=== PATIENT | female | born 1930 | race Caucasian/White ===

== ENCOUNTER 2018-06-20 14:24 | Day surgery (SDC) | payer MEDICARE, BC ==
[2018-06-17 12:51] LABS: BASOPHILS % (AUTO) 0.3 % (0-1); EOSINOPHILS # (AUTO) 0.2 X10'3 (0-0.9); EOSINOPHILS % (AUTO) 2.2 % (0-6); HEMATOCRIT 35.9 % (35.0-45.0); HEMOGLOBIN 11.8 g/dl (12.0-16.0); LYMPHOCYTES # (AUTO) 1.3 X10'3 (1.1-4.8); LYMPHOCYTES % (AUTO) 14.8 % (21-51); MEAN CORPUSCULAR HEMOGLOBIN 28.3 PG (27.0-31.0); MEAN CORPUSCULAR HGB CONC 32.9 g/dL (33.0-36.5); MEAN CORPUSCULAR VOLUME 86.1 FL (78-98); MONOCYTES # (AUTO) 0.7 X10'3 (0-0.9); MONOCYTES % (AUTO) 7.9 % (2-12); NEUTROPHILS # (AUTO) 6.5 X10'3 (1.8-7.7); NEUTROPHILS % (AUTO) 74.8 % (42-75); PLATELET COUNT 211 X10'3 (140-440); RED BLOOD COUNT 4.17 X10'6 (4.20-5.60); RED CELL DISTRIBUTION WIDTH 15.6 % (11.5-14.5); WHITE BLOOD COUNT 8.7 X10'3 (4.5-11.0)
[2018-06-17 12:58] LABS: ALBUMIN 3.1 G/DL (3.4-5.0); ANION GAP 8 (8-16); BLOOD UREA NITROGEN 28 MG/DL (7-18); CALCIUM 8.9 MG/DL (8.5-10.1); CHLORIDE 104 MMOL/L (99-107); CREATININE 1.12 MG/DL (0.40-0.90); GLUCOSE 173 MG/DL (70-104); POTASSIUM 4.2 MMOL/L (3.5-5.1); SODIUM 139 MMOL/L (135-145); TOTAL CARBON DIOXIDE 27.3 MMOL/L (24-32); eGFR 46 ML/MIN
[2018-06-17 13:05] LABS: INR 1.1 INR; PARTIAL THROMBOPLASTIN TIME 28 SECONDS (22-32); PROTHROMBIN TIME 11.2 SECONDS (9.0-12.0)
[2018-06-20] VITALS (7 sets, daily range): BP systolic 104–148; BP diastolic 37–90
[~2018-06-20] VITALS: Ht 149.9 cm; Wt 67.9 kg
[~2018-06-20 14:24] MED LIST: ASPI-1264 PO; CALCIUM; HCTZ25T PO; METF1000 PO; MULT-785 PO; PIOG45TA PO; POTA10TA36 PO; SYN0.112T PO
[2018-06-20] MEDS ORDERED: normal saline 1000ml 1,000 ML IV SCH (14:45)
[2018-06-20] MEDS ORDERED: diphenhydrAMINE 25mg capsule PO PRN (14:45)
[2018-06-20] MEDS ORDERED: LORazepam 0.5 MG tablet PO PRN (14:45)
[2018-06-20] MEDS ORDERED: ASPI-611 PO (15:16)
[2018-06-20] MEDS ORDERED: OMEP40CA37 PO (15:16)
[2018-06-20] MEDS ORDERED: OXYB10TA4 PO (15:16)
[2018-06-20] MEDS ORDERED: OLME1TAB24 PO (15:16)
[2018-06-20] MEDS ORDERED: CELE-85 PO (15:16)
[2018-06-20] MEDS ORDERED: DILT240C51 PO (15:16)
[2018-06-20] MEDS ORDERED: INSU300I3 SQ (15:16)
[2018-06-20] MEDS ORDERED: LEVO175T2 PO (15:16)
[2018-06-20] MEDS ORDERED: ATOR10TA87 PO (15:16)
[2018-06-20] MEDS ORDERED: LIRA0.6P2 SUBCUT (15:16)
[2018-06-20] MEDS ORDERED: fentaNYL/PF 50MCG/1 ML 2ML syringe ONE (16:18)
[2018-06-20] MEDS ORDERED: midazolam 2 mg/2 ml injection ONE (16:18)
[2018-06-20] MEDS ORDERED: iohexol 350MG/ML 100ml bottle IV ONE (16:19)
[2018-06-20] MEDS ORDERED: LIDOcaine 1% (10mg/ml)w/preservative injection 20ml MDV ONE (16:19)
[2018-06-20] MEDS ORDERED: heparin 1,000unit/ml 10ml vial 10 ML ONE (18:07)
[2018-06-20] MEDS ORDERED: atropine 0.1mg/ml 10ml syringe ONE (18:07)
[2018-06-20] MEDS ORDERED: iohexol 350 MG/ML 50ML vial IV ONE (18:09)
[2018-06-20] MEDS ORDERED: ticagrelor 90mg tablet ONE (18:15)
[2018-06-20] MEDS ORDERED: OXAZEpam 15mg capsule PO PRN (18:55)
[2018-06-20] MEDS ORDERED: HYDROcodone/acetaminophen 10/325mg tab PO PRN (19:00)
[2018-06-20] MEDS ORDERED: proCHLORperazine 10 MG/2 ml inj IV PRN (19:00)
[2018-06-20] MEDS ORDERED: HYDROcodone/acetaminophen 5mg/325mg tablet PO PRN (19:00)
[2018-06-20] MEDS ORDERED: ondansetron/PF 4mg/2ml inj IV PRN (19:00)
== END 2018-06-20 20:15 | disposition home or self-care (01) ==
LOC: SSTAY O 14:24
PROVIDERS: ATTEND Internal Medicine Interventional Cardiology
DX: I25.10 Atherosclerotic heart disease of native coronary artery without angina pectoris (principal); I12.9 Hypertensive chronic kidney disease with stage 1 through stage 4 chronic kidney disease, or unspecified chronic kidney disease; I48.91 Unspecified atrial fibrillation; E11.22 Type 2 diabetes mellitus with diabetic chronic kidney disease; N18.9 Chronic kidney disease, unspecified; E03.9 Hypothyroidism, unspecified; I48.0 Paroxysmal atrial fibrillation; M81.0 Age-related osteoporosis without current pathological fracture
CPT/HCPCS: 36415; 80048; 82948; 85025; 85610; 85730; 93005; 93458; 99152; 99153; A6257; C1874; C9600; J0461; J1644; J2001; J2250; J3010; J7030; Q0163; Q9967; 93454; A4620; C1725; C1760; C1769

== ENCOUNTER 2018-07-10 01:33 | Inpatient (IN) | payer MEDICARE, BC | END 2018-07-12 15:00 | disposition home or self-care (01) | LOC: ER 01:33 → ED HOLD 04:56 → MED 3N 12:12 | PROC: 0DJ08ZZ Inspection of Upper Intestinal Tract, Via Natural or Artificial Opening Endoscopic (ICD-10-PCS; principal; ~2018-07-10) | PROC: 0W3P8ZZ Control Bleeding in Gastrointestinal Tract, Via Natural or Artificial Opening Endoscopic (ICD-10-PCS; ~2018-07-10) | DX: K92.2 Gastrointestinal hemorrhage, unspecified (principal); I21.A1 Myocardial infarction type 2; N17.0 Acute kidney failure with tubular necrosis; D62 Acute posthemorrhagic anemia; Q27.33 Arteriovenous malformation of digestive system vessel ==